=== PATIENT | male | born 1935 | race Two or more races ===

== ENCOUNTER 2016-11-30 13:37 | Emergency (ER) | payer MEDICARE, OTHER ==
[2016-11-30 14:08] VITALS: BP 158/86
--- NOTE | 2016-11-30 14:28 | UC ---
Skin Complaint HPI - HPI Summary HPI Summary: 81 YEAR OLD MALE PRESENTS WITH LEFT SIDED TRUNK RASH. - History of Current Complaint Chief Complaint: UCRash Time Seen by Provider: 11/30/16 14:28 Stated Complaint: RASH Hx Obtained From: Patient Onset/Duration: Sudden Onset Skin Exposure Onset/Duration: Hours Ago Onset Severity: Moderate Current Severity: Moderate Pain Scale Used: 0-10 Numeric - 5 - Allergy/Home Medications Allergies/Adverse Reactions: Allergies Allergy/AdvReac Type Severity Reaction Status Date / Time LACTOSE INTOLERANT Allergy Mild GI UPSET, Uncoded 04/24/14 10:07 GASSY Review of Systems Constitutional: Negative Skin: Rash Eyes: Negative ENT: Negative Respiratory: Negative Cardiovascular: Negative Gastrointestinal: Negative Genitourinary: Negative Motor: Negative Neurovascular: Negative Musculoskeletal: Negative Neurological: Negative Psychological: Negative All Other Systems Reviewed And Are Negative: Yes PMH/Surg Hx/FS Hx/Imm Hx Other History Of: Negative For: Anticoagulant Therapy - Surgical History Surgical History: Yes Surgery Procedure, Year, and Place: 1994 BILATERAL CARPAL TUNNEL RELEASE, [place]. 12/27/2012 WHIPPLE PROCEDURE, [facility]. COLONOSCOPY - 10-12 YEARS AGO. PORT IMPLANT 03/08 - Social History Alcohol Use: Occasionally Alcohol Amount: 3-4 oz wine Substance Use Type: None Smoking Status (MU): Former Smoker Type: Cigarettes - Immunization History Most Recent Influenza Vaccination: fall 2013 Most Recent Tetanus Shot: utd per pt Most Recent Pneumonia Vaccination: utd per pt Physical Exam Triage Information Reviewed: Yes Vital Signs: Initial Vital Signs Temp 38.1 C 11/30/16 14:04 Pulse 82 11/30/16 14:04 Resp 18 11/30/16 14:04 BP 158/86 11/30/16 14:04 Pulse Ox 95 11/30/16 14:04 Eye Exam: Normal ENT Exam: Normal Dental Exam: Normal Neck exam: Normal Neck: Positive: 1 Respiratory Exam: Normal Cardiovascular Exam: Normal Abdominal Exam: Normal Musculoskeletal Exam: Normal Neurological Exam: Normal Psychological Exam: Normal Skin: Positive: rashes - RASH LEFT SIDE OF TRUNK Course/Dx - Differential Diagnoses - Skin Complaint Differential Diagnoses: Varicella Zoster - Diagnoses Provider Diagnoses: SHINGLES Discharge - Discharge Plan Condition: Stable Disposition: HOME Prescriptions: Acetaminop/Codeine 30 MG TAB* [Tylenol/Codeine 30 MG TAB*] 1 tab PO Q8H PRN #9 tab MDD 3 PRN Reason: Pain Acyclovir* [Zovirax 400 MG TAB*] 800 mg PO 5ID #35 tab Capsaicin 0.025% CREAM* [Zostrix 0.025% CREAM*] 1 applic TOPICAL BID #1 tube predniSONE TAB* [Deltasone TAB*] 40 mg PO DAILY #10 tab Patient Education Materials: Shingles (ED) Referrals: June Anglin MD [Primary Care Provider] -
== END 2016-11-30 15:07 | disposition home or self-care (01) ==
LOC: UCEAST 13:37
DX: B02.9 Zoster without complications (principal); E73.9 Lactose intolerance, unspecified; Z87.891 Personal history of nicotine dependence
CPT/HCPCS: 99212; G0463

== ENCOUNTER 2017-08-11 20:57 | Emergency (ER) | payer MEDICARE, OTHER ==
[2017-08-11 21:12] VITALS: BP 186/87
[2017-08-11] MEDS ORDERED: guaiFENesin/CODIEN 100MG-10MG* 5 ML UDC PO ONE (21:24)
[2017-08-11] MEDS ORDERED: Levofloxacin TAB* 250 MG PO ONE (21:24)
[2017-08-11] MEDS ORDERED: Acetaminophen TAB* 325 MG PO ONE (21:40)
--- NOTE | 2017-08-11 21:41 | UC ---
Choco Escobar Stephanie, scribed for Martín Busby MD on 08/11/17 at 2128 . Respiratory Complaint HPI - HPI Summary HPI Summary: The pt is an 82 y/o M presenting to with c/o cough that began 1 week ago. Symptoms include weakness, body aches and fever. The pt received a CXR yesterday which was reported as no acute findings. - History of Current Complaint Chief Complaint: UCRespiratory Stated Complaint: COUGH,NECK PAIN Time Seen by Provider: 08/11/17 21:08 Hx Obtained From: Patient Onset/Duration: Gradual Onset, Lasting Weeks - 1, Still Present Timing: Constant Severity Currently: Moderate Pain Intensity: 8 Pain Scale Used: 0-10 Numeric Character: Cough: Nonproductive Aggravating Factors: Nothing Alleviating Factors: Nothing - Allergies/Home Medications Allergies/Adverse Reactions: Allergies Allergy/AdvReac Type Severity Reaction Status Date / Time LACTOSE INTOLERANT Allergy Mild GI UPSET, Uncoded 08/11/17 21:12 GASSY Home Medications: Home Medications Acetaminophen 325 mg PO Q4H PRN 08/11/17 [History Confirmed 08/11/17] PMH/Surg Hx/FS Hx/Imm Hx Cardiovascular History: Hypertension Other History Of: Negative For: Anticoagulant Therapy - Surgical History Surgical History: Yes Surgery Procedure, Year, and Place: 1994 BILATERAL CARPAL TUNNEL RELEASE, [place]. 12/27/2012 WHIPPLE PROCEDURE, [facility]. COLONOSCOPY - 10-12 YEARS AGO. PORT IMPLANT 03/08 - Family History Known Family History: Negative: Renal Disease - Social History Occupation: Retired Lives: With Family Alcohol Use: Occasionally Alcohol Amount: 3-4 oz wine Substance Use Type: None Smoking Status (MU): Former Smoker Type: Cigarettes When Did the Patient Quit Smoking/Using Tobacco: 30 yrs - Immunization History Most Recent Influenza Vaccination: fall 2013 Most Recent Tetanus Shot: utd per pt Most Recent Pneumonia Vaccination: utd per pt Review of Systems Constitutional: Fever, Other - body aches Skin: Negative Eyes: Negative ENT: Negative Respiratory: Cough Cardiovascular: Negative Gastrointestinal: Negative Genitourinary: Negative Motor: Weakness Neurovascular: Negative Musculoskeletal: Other: - body aches Neurological: Negative Psychological: Negative All Other Systems Reviewed And Are Negative: Yes Physical Exam - Summary Physical Exam Summary: VITAL SIGNS: Reviewed. GENERAL: Patient is a well-developed and nourished MALE who is lying comfortable in the stretcher. Patient is not in any acute respiratory distress. HEAD AND FACE: Normocephalic EYES: PERRLA, EOMI x 2. EARS: Hearing grossly intact. MOUTH: Oropharynx within normal limits. NECK: Supple, trachea is midline, no adenopathy, no JVD, no carotid bruit. CHEST: Symmetric, no tenderness at palpation LUNGS: R lower lobe crackles. CVS: Regular rate and rhythm, S1 and S2 present, no murmurs or gallops appreciated. ABDOMEN: Soft, non-tender. Bowel sounds are normal. No abdominal abnormal pulsations. EXTREMITIES: Full ROM in all major joints, no edema, no cyanosis or clubbing. NEURO: Alert and oriented x 3. No acute neurological deficits. Speech is normal and follows commands. SKIN: Dry and warm Triage Information Reviewed: Yes Vital Signs: Initial Vital Signs Temp 101 F 08/11/17 21:07 Pulse 87 08/11/17 21:07 Resp 16 08/11/17 21:07 BP 186/87 08/11/17 21:07 Pulse Ox 93 08/11/17 21:07 Vital Signs Reviewed: Yes Diagnostic Evaluation - Laboratory O2 Sat by Pulse Oximetry: 93 Respiratory Course/Dx - Course Course Of Treatment: 82-year-old male presents to the urgent care with a chief complaint of having coughing, body aches, fever. She reports that she had a chest x-ray yesterday and it was read as negative for any pathology. However today pain chest x-ray and negative for the patient has a right lower lobe pneumonia. In the physical exam the patient also has a right lower lobe crackles. The patient has fever today and also he has increased ear pain therefore I believe that the patient has pneumonia. He was given Levaquin and Robitussin for the cough. Patient will follow-up with primary care physician in 3 days. He was instructed to return to the emergency department if she develops worsening symptoms. He understands and agrees. - Differential Dx/Diagnosis Provider Diagnoses: Right lower lobe pneumonia Discharge - Sign-Out/Discharge Documenting (check all that apply): Discharge/Admit/Transfer - Discharge Plan Condition: Stable Disposition: HOME Prescriptions: guaiFENesin/CODIEN 100MG-10MG* [Robitussin AC 100Mg-10Mg*] 10 ml PO Q6H PRN # 200 ml MDD 40 ml PRN Reason: Cough Levofloxacin TAB* [Levaquin TAB*] 750 mg PO DAILY #9 tab Patient Education Materials: Pneumonia (ED) Referrals: June Anglin MD [Primary Care Provider] - - Billing Disposition and Condition Condition: STABLE Disposition: Home The documentation as recorded by the Choco murray Stephanie accurately reflects the service I personally performed and the decisions made by Kehinde kolb Walter, MD.
== END 2017-08-11 21:40 | disposition home or self-care (01) ==
LOC: UCEAST 20:57
DX: J18.9 Pneumonia, unspecified organism (principal); I10 Essential (primary) hypertension; Z87.891 Personal history of nicotine dependence
CPT/HCPCS: 99212; A9270-GY; G0463

== ENCOUNTER 2017-09-19 17:05 | Emergency (ER) | payer MEDICARE, OTHER ==
[2017-09-19 17:20] VITALS: BP 139/85
[2017-09-19] MEDS ORDERED: Cephalexin CAP* 500 MG PO ONE ×2 (17:54)
--- NOTE | 2017-09-19 18:30 | UC ---
Skin Complaint HPI - HPI Summary HPI Summary: 10 DAYS AGO WHILE WALKING THROUGH A DOOR CAUGHT HIS LEFT ELBOW ON THE DOOR LATCH. SUSTAINED A SKIN TEAR. PATIENT HAS BEEN KEEPING IT CLEAN AND COVERED WITH BACITRACIN ZINC OINTMENT. COMES IN TODAY BECAUSE THE CENTER DOES NOT SEEM TO BE HEALING WELL. HAS YELLOWISH NECROTIC TISSUE. NO FEVERS. NO DRAINAGE. THINKS HIS TETANUS WAS BOOSTED ABOUT 1 MONTH AGO WITH HIS PCP. - History of Current Complaint Chief Complaint: UCSkin Time Seen by Provider: 09/19/17 17:12 Stated Complaint: SKIN COMPLAINT ON ARM Hx Obtained From: Patient, Family/Sprayer Operator - Onset/Duration: Sudden Onset, Lasting Days, Still Present Timing: Constant Onset Severity: Moderate Current Severity: Moderate Pain Intensity: 0 Pain Scale Used: 0-10 Numeric Aggravating Factor(s): Nothing Alleviating Factor(s): Nothing Associated Signs & Symptoms: Positive: Tenderness - MINIMAL. Negative: Nausea, Fever, Chills, Throat Tightening, Rash, Drainage - Allergy/Home Medications Allergies/Adverse Reactions: Allergies Allergy/AdvReac Type Severity Reaction Status Date / Time LACTOSE INTOLERANT Allergy Mild GI UPSET, Uncoded 09/19/17 17:20 GASSY Home Medications: Home Medications Capsaicin 0.025% CREAM* [Zostrix 0.025% CREAM*] 1 applic TOPICAL BID PRN [History Confirmed 09/19/17] Lisinopril TAB* [Prinivil TAB 5 MG*] 5 mg PO DAILY 09/19/17 [History Confirmed 09/19/17] amLODIPine TAB* [Norvasc 5 mg TAB*] 5 mg PO DAILY 09/19/17 [History Confirmed ] Review of Systems Constitutional: Negative Skin: Bruising, Other - SKIN TEAR Respiratory: Negative Cardiovascular: Negative Gastrointestinal: Negative All Other Systems Reviewed And Are Negative: Yes PMH/Surg Hx/FS Hx/Imm Hx Cardiovascular History: Hypertension Other Cancer History: BILE DUCT Other History Of: Negative For: Anticoagulant Therapy - Surgical History Surgical History: Yes Surgery Procedure, Year, and Place: 1994 BILATERAL CARPAL TUNNEL RELEASE, [place]. 12/27/2012 WHIPPLE PROCEDURE, [facility]. COLONOSCOPY - 10-12 YEARS AGO. PORT IMPLANT 03/08 - Family History Known Family History: Negative: Renal Disease - Social History Alcohol Use: Daily Alcohol Amount: 1 wine/day Substance Use Type: None Smoking Status (MU): Former Smoker Type: Cigarettes When Did the Patient Quit Smoking/Using Tobacco: 30 yrs - Immunization History Most Recent Influenza Vaccination: fall 2013 Most Recent Tetanus Shot: utd per pt Most Recent Pneumonia Vaccination: utd per pt Physical Exam Triage Information Reviewed: Yes Appearance: Well-Appearing, No Pain Distress, Well-Nourished Vital Signs: Initial Vital Signs Temp 98.0 F 09/19/17 17:14 Pulse 77 09/19/17 17:14 Resp 16 09/19/17 17:14 BP 139/85 09/19/17 17:14 Pulse Ox 95 09/19/17 17:14 Vital Signs Reviewed: Yes Eyes: Positive: Conjunctiva Clear ENT: Positive: Hearing grossly normal Neck: Positive: Supple Respiratory: Positive: No respiratory distress, No accessory muscle use Cardiovascular: Positive: Pulses Normal Abdomen Description: Positive: Soft Musculoskeletal: Positive: ROM Intact, No Edema Neurological: Positive: Alert Psychological: Positive: Age Appropriate Behavior Skin: Positive: Other - LEFT ELBOW LATERAL ASPECT: 10CM X 8 CM AREA OF ECCHYMOSIS WITH CENTRALLY LOCATED 3CM X 1 CM OPEN AREA WITH YELLOW NECROTIC TISSUE. NO DRAINAGE. MINIMALLY TENDER. Course/Dx - Course Course Of Treatment: NECROTIC TISSUE DEBRIDED FROM THE WOUND. ANTIBIOTIC OINTMENT AND NONSTICK BANDAGE APPLIED. KEFLEX TO HELP PREVENT INFECTION SETTING IN. PATIENT THINKS HE HAD A TETANUS BOOSTER ABOUT ONE MONTH AGO. ADVISED TO CALL HIS PCP OFFICE FIRST THING Thursday TO CONFIRM. - Diagnoses Provider Diagnoses: SKIN TEAR - HEALING Discharge - Sign-Out/Discharge Documenting (check all that apply): Patient Departure - Discharge Plan Condition: Stable Disposition: HOME Prescriptions: Cephalexin CAP* [Keflex 500 CAP*] 1,000 mg PO BID #16 cap Patient Education Materials: Skin Tear (ED) Referrals: June Anglin MD [Primary Care Provider] - 1 Week Additional Instructions: GENTLY CLEANSE DAILY WITH SOAP AND WATER. PAT DRY AND RE-BANDAGE. APPLY THIN LAYER ANTIBIOTIC OINTMENT UNDER BANDAGE. CHANGE BANDAGE DAILY AND NEEDED IF IT BECOMES SOILED OR WET. SEEK FOLLOW-UP IF YOU DEVELOP SPREADING REDNESS OF THE SKIN, PURULENT DRAINAGE, FEVER, INCREASED PAIN OR ANY OTHER CONCERNING SYMPTOMS. TAKE ANTIBIOTIC TWICE DAILY FOR 5 DAYS TO PREVENT INFECTION. - Billing Disposition and Condition Condition: STABLE Disposition: Home
== END 2017-09-19 17:58 | disposition home or self-care (01) ==
LOC: UCEAST 17:05
DX: S51.012A Laceration without foreign body of left elbow, initial encounter (principal); W22.09XA Striking against other stationary object, initial encounter; Y93.89 Activity, other specified; Y92.009 Unspecified place in unspecified non-institutional (private) residence as the place of occurrence of the external cause; I10 Essential (primary) hypertension; Z87.891 Personal history of nicotine dependence
CPT/HCPCS: 99212; A9270-GY; G0463

== ENCOUNTER 2018-08-20 07:59 | Emergency (ER) | payer MEDICARE, OTHER ==
[2018-08-20 08:13] VITALS: BP 167/91
--- NOTE | 2018-08-20 08:28 | UC ---
Abdominal Pain Male HPI - HPI Summary HPI Summary: Patient is a delightful 83-year-old gentleman who presents to urgent care with his . Patient is status post a Whipple procedure for biliary tract cancer in 2012. Is currently, patient has had 2 hospital admissions for SBO not requiring surgery. Last one was grater than 1 year ago. Patient states his cancer markers are negligible and he is no longer followed by oncology. Patient states he presents today with 2 days of progressive left lower quadrant pain. deep, ache, bloated without radiation. Patient states he had a small heart bowel movement yesterday morning but nothing since. Patient with nausea but no vomiting. Patient states he is chills but no documented fever. No rash. Patient states he is belching a lot. No chest pain or shortness of breath. Patient has not taken any analgesia. Patient states he's unable to get into his primary so he came here today. No recent colonoscopy. No history of diverticulitis. Patient's medications reviewed this visit. - History of Current Complaint Chief Complaint: UCAbdominalPain Stated Complaint: LOWER ABD PAIN Time Seen by Provider: 08/20/18 08:27 Hx Obtained From: Patient, Family/Bundler Onset/Duration: Gradual Onset Severity Initially: Mild Severity Currently: Moderate Pain Intensity: 4 Pain Scale Used: 0-10 Numeric Location: Discrete At: LLQ - Allergies/Home Medications Allergies/Adverse Reactions: Allergies Allergy/AdvReac Type Severity Reaction Status Date / Time LACTOSE INTOLERANT Allergy Mild GI UPSET, Uncoded 08/20/18 08:14 GASSY Home Medications: Home Medications Ibuprofen TAB* [Advil TAB*] 200 mg PO Q6H PRN 08/20/18 [History Confirmed ] PMH/Surg Hx/FS Hx/Imm Hx Previously Healthy: Yes Endocrine History: Dyslipidemia Cardiovascular History: Hypertension Cancer History: Other - biliary tract cancern Other History Of: Negative For: Anticoagulant Therapy - Surgical History Surgical History: Yes Surgery Procedure, Year, and Place: 1994 BILATERAL CARPAL TUNNEL RELEASE, [place]. 12/27/2012 WHIPPLE PROCEDURE, [facility]. COLONOSCOPY - 10-12 YEARS AGO. PORT IMPLANT 03/08 - Family History Known Family History: Positive: Non-Contributory Negative: Renal Disease - Social History Alcohol Use: Daily Alcohol Amount: 1 wine/day Substance Use Type: None Smoking Status (MU): Former Smoker Type: Cigarettes When Did the Patient Quit Smoking/Using Tobacco: 30 yrs - Immunization History Most Recent Influenza Vaccination: fall 2013 Most Recent Tetanus Shot: utd per pt Most Recent Pneumonia Vaccination: utd per pt Review of Systems All Other Systems Reviewed And Are Negative: Yes Constitutional: Positive: Chills, Fatigue Skin: Positive: Negative Eyes: Positive: Negative ENT: Positive: Negative Respiratory: Positive: Negative Cardiovascular: Positive: Negative Gastrointestinal: Positive: Abdominal Pain, Nausea Genitourinary: Positive: Other - slow stream Motor: Positive: Negative Neurovascular: Positive: Negative Physical Exam - Summary Physical Exam Summary: Vital Signs Reviewed: Yes A+Ox3, mild discomfort with movement Eyes: Conjunctiva Clear, KAIT. EOM intact and full ENT: Hearing grossly normal TM x 2 clear, mmoist, uvula midline, no exudate, no erythema Neck: Positive: Supple Respiratory: Positive: No respiratory distress, No accessory muscle use + CTA throughout no w/r Cardiovascular: RRR nl s1, s2 no m/r CBT <2 sec abd soft + BS, no distension, + TTP LLQ with deep palp, no guarding, no rebound Musculoskeletal Exam: FIERRO x 4 without difficulty Strength Intact, ROM Intact Neurological: Positive: Alert, + sensation throughout Psychological: Positive: Normal Response To Family Skin: Positive: no rash, no ecchymosis Triage Information Reviewed: Yes Vital Signs: Initial Vital Signs Temp 98.5 F 08/20/18 08:06 Pulse 70 08/20/18 08:06 Resp 16 08/20/18 08:06 BP 167/91 08/20/18 08:06 Pulse Ox 97 08/20/18 08:06 Abd Pain Male Course/Dx - Course Course Of Treatment: Patient presents to urgent care for evaluation of 2 days progressive left lower quadrant pain. Patient reports mild mild nausea and belching. No vomiting. Patient with a small firm bowel movement yesterday morning but states nothing since. Patient states he has chills but no fevers. Patient's medical history is complex with a history of a Whipple procedure and appendectomy. Patient also states he's had 2 SPS. Patient has never had diverticulitis on exam vital signs are stable except for an elevated blood pressure. Patient with a history of similar took his medications this morning. Patient does have tenderness left lower quadrant but is not rebounding or guarding. Recommend patient to the emergency department for further evaluation. Discussed with patient and at length and they are in agreement with plan. We'll go by private car. I spoke to Alyssa, charge nurse in the ED, where patient coming. - Differential Dx/Clinical Impression Provider Diagnosis: LLQ abdominal pain Discharge - Sign-Out/Discharge Documenting (check all that apply): Patient Departure All imaging exams completed and their final reports reviewed: No Studies - Discharge Plan Condition: Stable Disposition: HOME-RECOMMEND TO ED Patient Education Materials: Abdominal Pain (ED) Referrals: June Anglin MD [Primary Care Provider] - Additional Instructions: The doctor that evaluated you today thinks that you need additional testing that can be completed the emergency department. It is recommended that you go directly to emergency department for further evaluation. This evaluation may include blood work or imaging. This testing will be directed and decided by the provider that evaluate you at the emergency department. If pain becomes worse, you feel lightheaded, you have uncontrolled vomiting, or you have any other concerns while you are being driven to emergency department as recommended to pullover and contact 911. - Billing Disposition and Condition Condition: STABLE Disposition: Home-Recommend to ED
== END 2018-08-20 08:50 | disposition home health service (06) ==
LOC: UCEAST 07:59
DX: R10.32 Left lower quadrant pain (principal); I10 Essential (primary) hypertension; E78.5 Hyperlipidemia, unspecified; R68.83 Chills (without fever); R53.83 Other fatigue; Z87.891 Personal history of nicotine dependence; Z85.09 Personal history of malignant neoplasm of other digestive organs
CPT/HCPCS: 99212; G0463

== ENCOUNTER 2018-08-20 09:07 | Emergency (ER) | payer MEDICARE, OTHER ==
[2018-08-20] MEDS ORDERED: NS 0.9% 1000 ML** 1,000 ML IV ONE ×2 (09:23→10:17)
[2018-08-20] MEDS ORDERED: Morphine INJ* 2 MG/ML 1 ML SYRINGE (TWO MG - NEW SYRINGE VERSION) IV ONE (09:24)
[2018-08-20] MEDS ORDERED: Ondansetron INJ* 2 MG/ML VIAL IV ONE (09:24)
--- NOTE | 2018-08-20 09:31 | ED ---
GI/ HPI - HPI Summary HPI Summary: 83-year-old male presents with lower quadrant pain for the past 3 days. He states he had a small bowel movement yesterday that had difficulty with. He states he has passed some gas since. He states that he has been feeling nauseous but no vomiting. He does have a history of bowel obstruction. 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 He states he is currently in remission for the bile duct cancer. He denies any fevers. No urinary symptoms. No chest pain or shortness of breath. Has history of high blood pressure. - History of Current Complaint Chief Complaint: EDAbdPain Time Seen by Provider: 08/20/18 09:14 Stated Complaint: ABD PAIN PER PT Pain Intensity: 5 - Allergy/Home Medications Allergies/Adverse Reactions: Allergies Allergy/AdvReac Type Severity Reaction Status Date / Time lactose Allergy GI Upset Verified 08/20/18 09:12 Home Medications: Home Medications Loratadine [Claritin] 10 mg PO DAILY PRN 08/20/18 [History Confirmed 08/20/18] PMH/Surg Hx/FS Hx/Imm Hx Endocrine/Hematology History: Reports: Hx Diabetes Denies: Hx Anticoagulant Therapy, Hx Blood Disorders, Hx Blood Transfusions, Hx Bone Marrow Disease, Hx Systemic Lupus Erythematosus, Hx Sickle Cell Disease , Hx Thyroid Disease, Hx Anemia, Hx Unexplained Bleeding, Other Endocrine/ Hematological Disorders Cardiovascular History: Reports: Hx Hypercholesterolemia, Hx Hypertension, Other Cardiovascular Problems/Disorders - HX OF CHOLESTEROL ELEVATION SLIGHTLY, NO MEDS Denies: Hx Aneurysm, Hx Angioplasty, Hx Auto Implanted Cardiovert Defib, Hx Cardiac Arrest, Hx Cardiomegaly, Hx Congenital Heart Disease, Hx Congestive Heart Failure, Hx Coronary Artery Disease, Hx Deep Vein Thrombosis, Hx Embolism , Hx Hypotension, Hx Pacemaker/ICD, Hx Peripheral Vascular Disease, Hx Rheumatic Fever, Hx Syncope, Hx Valvular Heart Disease Respiratory History: Denies: Hx Asthma, Hx Chronic Bronchitis, Hx Chronic Obstructive Pulmonary Disease (COPD), Hx Cystic Fibrosis, Hx Lung Cancer, Hx Pleural Effusion, Hx Pneumonia, Hx Pulmonary Edema, Hx Pulmonary Embolism, Hx Seasonal Allergies, Hx Sleep Apnea, Other Respiratory Problems/Disorders GI History: Reports: Hx Gall Bladder Disease - bile duct CA, Hx Gastroesophageal Reflux Disease, Hx Obstructive Bowel - current SBO, Other GI Disorders - SMALL BOWEL OBSTRUCTION 02/05/13 Denies: Hx Cirrhosis, Hx Crohn's Disease, Hx Diverticulosis, Hx Gastrointestinal Bleed, Hx Hiatal Hernia, Hx Irritable Bowel, Hx Jaundice, Hx Ileostomy, Hx Pyloric Stenosis, Hx Ulcer History: Denies: Hx Acute Renal Failure, Hx Benign Prostatic Hyperplasia, Hx Chronic Renal Failure, Hx Dialysis, Hx Kidney Infection, Hx Kidney Stones, Hx Renal Disease, Other Problems/Disorders Musculoskeletal History: Reports: Hx Arthritis, Hx Back Problems - low back pain Denies: Hx Bursitis, Hx Congenital Bone Abnormalities, Hx Fibromyalgia, Hx Gout, Hx Orthopedic Injury, Hx Osteoporosis, Hx Scoliosis, Hx Tendonitis, Other Musculoskeletal History Sensory History: Reports: Hx Contacts or Glasses, Hx Hearing Problem - [place] Denies: Hx Cataracts, Hx Eye Injury, Hx Eye Prosthesis, Hx Glaucoma, Hx Legally Blind, Hx Macular Degeneration, Hx Vision Problem, Hx Deafness, Hx Hearing Aid, Other Sensory Impairments Opthamlomology History: Reports: Hx Contacts or Glasses Denies: Hx Cataracts, Hx Eye Injury, Hx Eye Prosthesis, Hx Glaucoma, Hx Legally Blind, Hx Macular Degeneration, Hx Vision Problem, Other Sensory Impairments Neurological History: Denies: Hx Dementia, Hx Developmental Delay, Hx Headaches, Hx Migraine, Hx Nerve Disease, Hx Seizures, Hx Spinal Cord Injury, Hx Transient Ischemic Attacks (TIA), Other Neuro Impairments/Disorders Psychiatric History: Denies: Hx Anxiety, Hx Attention Deficit Hyperactivity Disorder, Hx Eating Disorder, Hx Depression, Hx Panic Disorder, Hx Post Traumatic Stress Disorder, Hx Inpatient Treatment, Hx Community Mental Health Tx, Hx Schizophrenia, Hx Bipolar Disorder, Hx Suicide Attempt, Hx of Violent Episodes Against Others, Hx Substance Abuse, Other Psychiatric Issues/Disorders - Cancer History Cancer Type, Location and Year: "bile duct" cancer per pt. Hx Chemotherapy: Yes - jul 2013 Hx Radiation Therapy: No Hx Palliative Cancer Treatment: No - Surgical History Surgery Procedure, Year, and Place: 1994 BILATERAL CARPAL TUNNEL RELEASE, [place]. 12/27/2012 WHIPPLE PROCEDURE, [facility]. COLONOSCOPY - 10-12 YEARS AGO. PORT IMPLANT 03/08 Hx Anesthesia Reactions: No - Immunization History Date of Tetanus Vaccine: unknown Infectious Disease History: No Infectious Disease History: Reports: Hx Shingles Denies: Hx Clostridium Difficile, Hx Hepatitis, Hx Human Immunodeficiency Virus (HIV), Hx Tuberculosis, Hx Known/Suspected VRE, Hx Known/Suspected VRSA, History Other Infectious Disease, Traveled Outside the [place] in Last 30 Days - Family History Known Family History: Positive: Non-Contributory Negative: Renal Disease - Social History Alcohol Use: Daily Alcohol Amount: 1 wine/day Substance Use Type: Reports: None Hx Tobacco Use: Yes - QUIT 30 YEARS AGO Smoking Status (MU): Former Smoker Type: Cigarettes Review of Systems Negative: Fever Negative: Chest Pain Negative: Shortness Of Breath Positive: Abdominal Pain, Nausea. Negative: Vomiting, Diarrhea All Other Systems Reviewed And Are Negative: Yes Physical Exam Triage Information Reviewed: Yes Vital Signs On Initial Exam: Initial Vitals Temp Pulse Resp BP Pulse Ox 97.7 F 72 18 164/91 96 08/20/18 09:09 08/20/18 09:09 08/20/18 09:09 08/20/18 09:09 08/20/18 09:09 Vital Signs Reviewed: Yes Appearance: Positive: Well-Appearing Skin: Positive: Warm, Dry Head/Face: Positive: Normal Head/Face Inspection Eyes: Positive: Normal, Conjunctiva Clear ENT: Positive: Pharynx normal Respiratory/Lung Sounds: Positive: Clear to Auscultation, Breath Sounds Present Cardiovascular: Positive: Normal, RRR Abdomen Description: Positive: Soft, Other: - tenderness LLQ, no rebound Bowel Sounds: Positive: Present Musculoskeletal: Positive: Normal Neurological: Positive: Normal Psychiatric: Positive: Normal Diagnostics - Vital Signs Vital Signs Temp Pulse Resp BP Pulse Ox 08/20/18 09:09 97.7 F 72 18 164/91 96 - Laboratory Result Diagrams: 08/20/18 09:38 08/20/18 09:38 Lab Statement: Any lab studies that have been ordered have been reviewed, and results considered in the medical decision making process. - CT abd CT Interpretation Completed By: Radiologist Summary of CT Findings: IMPRESSION: 1. NO EVIDENCE FOR COLITIS OR DIVERTICULITIS. THERE IS A LARGE AMOUNT OF RETAINED STOOL IN. THE DESCENDING AND SIGMOID COLON. 2. STATUS POST WHIPPLE PROCEDURE. NEW PANCREATIC DUCTAL DISTENTION. NO MASS IS SEEN. ALTHOUGH THERE IS A CALCIFICATION IN THE REGION OF THE PROXIMAL PANCREATIC DUCT WHICH MAY. BE THE CAUSE OF THE DUCTAL DISTENTION. CONSIDER A MRCP AND MRI OF THE PANCREAS WITHOUT AND. WITH CONTRAST. 3. RIGHT INGUINAL HERNIA CONTAINING NONDISTENDED SMALL BOWEL. THE HERNIA SIZE HAS. INCREASED FROM THE PRIOR STUDY. 4. 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 PRIOR STUDY. 5. PNEUMOBILIA, UNCHANGED. 6. 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 Re-Evaluation - Re-Evaluation First Eval Re-Evaluation Time: 12:57 Comment: attempted to have a bowel movement but unable to. does not want to do suppository here. GIGU Course/Dx - Course Course Of Treatment: 83-year-old male presents with lower quadrant pain for the past 3 days. He states he had a small bowel movement yesterday that had difficulty with. He states he has passed some gas since. He states that he has been feeling nauseous but no vomiting. He does have a history of bowel obstruction. 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 He states he is currently in remission for the bile duct cancer. He denies any fevers. No urinary symptoms. No chest pain or shortness of breath. Has history of high blood pressure. On exam tenderness left lower quadrant. No rebound. wbc 9. sodium 131. lipase is 173. crp elevated. urine no infection. CT shows stool and new duct dilation of pancreatitis duct. spoke with dr diaz who says to consult GI. discused case with dr maloeny who says to have follow up with primary to get MRI and they can consult with GI ([facility]) if needed. will also have follow up about worsening abd aneusrym for follow up. discussed options with patient for conspitation and wants to go home and take mag citrate. will have do miralax at home. patient understand and agrees with plan. - Diagnoses Differential Diagnoses - Male: Bowel Obstruction, Diverticulosis, Other - constipation Provider Diagnoses: Abdominal pain, Constipation Discharge - Sign-Out/Discharge Documenting (check all that apply): Patient Departure Patient Received Moderate/Deep Sedation with Procedure: No - Discharge Plan Condition: Good Disposition: HOME Prescriptions: Polyethylene Glycol 3350* [Miralax*] 17 gm PO DAILY #20 packet Patient Education Materials: Constipation (ED) Referrals: June Anglin MD [Primary Care Provider] - Additional Instructions: take magnesium citrate take miralax packet in 8 ounce of liquid daily for next 7 days increase fiber intake Take Tylenol every 6 hours as needed for pain Follow up with primary for follow up on pancreatic duct as may need MRI outpatient in future and possible GI consult Return to ED if develop any new or worsening symptoms - Billing Disposition and Condition Condition: GOOD Disposition: Home
[2018-08-20 09:49] LABS: ABS Monocytes 0.8 10^3/ul (0-0.8); Eosinophil % 0.6 %; Hematocrit 45 % (42-52); Lymphocyte % 11.3 %; Mean Corpuscular HGB Conc 33 g/dL (31-36); Mean Corpuscular Hemoglobin 26 pg (27-31); Mean Corpuscular Volume 79 fL (80-94); Mean Platelet Volume 9.5 fL (7.4-10.4); Nucleated Red Blood Cells % 0.1; Platelet Count 128 10^3/uL (150-450); Red Blood Count 5.76 10^6 /uL (4.18-5.48); Red Cell Distribution Width 16 % (10-15)
[2018-08-20 10:06] LABS: Albumin 3.8 g/dL (3.2-5.2); Albumin/Globulin Ratio 1.1 (1-3); BUN/Creatinine Ratio 16.1 (8-20); C Reactive Protein 60.19 mg/L (<8.01); Calcium 8.9 mg/dL (8.6-10.3); EGFR African American 149.2 (>60); EGFR Non-African American 123.3 (>60); Globulin 3.4 g/dL (2-4); Potassium 3.5 mmol/L (3.5-5.0); Total Bilirubin 1.8 mg/dL (0.2-1.0); Total Protein 7.2 g/dL (6.4-8.9)
[2018-08-20] MEDS ORDERED: Iodixanol* (CONTRAST) 320 MG/ML 100 ML SDV IV ONE (10:10)
[2018-08-20 11:04] LABS: Urine Appearance Clear; Urine Bilirubin Negative (Negative); Urine Blood Negative (Negative); Urine Color Yellow; Urine Glucose Negative (Negative); Urine Ketones Trace (Negative); Urine Nitrite Negative (Negative); Urine Protein Negative (Negative); Urine Specific Gravity 1.006 (1.010-1.030); Urine Urobilinogen Negative (Negative)
[2018-08-20] MEDS ORDERED: Magnesium CITRATE* 300 ML BTL PO ONE (12:58)
[2018-08-20 13:33] VITALS: BP 172/95
== END 2018-08-20 13:34 | disposition home or self-care (01) ==
LOC: ED 09:07
DX: K59.00 Constipation, unspecified (principal); E11.9 Type 2 diabetes mellitus without complications; I10 Essential (primary) hypertension; Z87.891 Personal history of nicotine dependence
CPT/HCPCS: 36415; 74177; 80053; 81003; 82150; 83605; 83690; 85025; 86140; 96361; 96374; 96375; 99283; A9270-GY; J2270; J2405; Q9967

== ENCOUNTER 2019-04-15 11:34 | Day surgery (SDC) | payer MEDICARE, OTHER ==
[~2019-04-15 11:34] MED LIST: Buffered Lidocaine 1% SYRIN* 1 ML/SYRINGE INTRADERM ONE; Dexamethasone TAB* 4 MG PO ONE; DiMENhydriNATE IV* 50 MG/ML VIAL IV PUSH PRN; Famotidine IV* 10 MG/ML 2 ML (20 mg) IV ONE; HYDROmorphone INJ1* 1 MG/ML SYRINGE IV PRN; Lactated Ringers 1000 ML Bag* 1,000 ML IV SCH; Naloxone* 0.4 MG/ML 1 ML VIAL IV PRN; Ondansetron ODT TAB* 4 MG PO ONE; PROCHLORPERAZINE INJ 5 MG/ML 2 ML VIAL IV PRN; fentaNYL* 50 MCG/ML 2 ML VIAL (100 MCG VIAL) IV PRN; oxyCODONE TAB* 5 MG TAB PO PRN
[2019-04-15] MEDS ORDERED: ceFAZolin 2 GM in NS PREMIX(*) 2 GM/100 ML BAG IVPB ONE (11:55)
[2019-04-15] MEDS ORDERED: Famotidine IV* 10 MG/ML 2 ML (20 mg) ONE (11:55)
[2019-04-15] MEDS ORDERED: Dexamethasone TAB* 4 MG ONE (11:55)
[2019-04-15] MEDS ORDERED: Ondansetron ODT TAB* 4 MG ONE (11:55)
[2019-04-15] MEDS ORDERED: fentaNYL* 50 MCG/ML 2 ML VIAL (100 MCG VIAL) ONE (12:12)
[2019-04-15] MEDS ORDERED: Midazolam* 1 MG/ML 2 ML VIAL (2 MG) ONE (12:12)
[2019-04-15] MEDS ORDERED: KETAMINE HCL* 50 MG/ML 10 ML VIAL ONE (12:12)
[2019-04-15] MEDS ORDERED: Propofol* 10 MG/ML 20 ML BTL ONE (12:14)
[2019-04-15] MEDS ORDERED: Bupivacaine 0.5% W/EPI SDV* 10 ML VIAL INJ ONE (12:34)
[2019-04-15] MEDS ORDERED: Lidocaine 1% INJ* 10 MG/ML 30 ML SDV ONE (12:35)
[2019-04-15] MEDS ORDERED: Ketorolac INJ* 30 MG/ML 1 ML VIAL ONE (13:20)
[2019-04-15] MEDS ORDERED: Acetaminophen IV 1GM/100ML * 100 ML ONE (13:21)
--- NOTE | 2019-04-15 14:07 | BRIEFOPN ---
Brief Operative/Procedure Note - Operation Details Pre-Op Diagnosis: Right inguinal hernia Post-Op Diagnosis: same; direct Procedures: open repair right inguinal hernia w/ mesh Surgeon(s)/Proceduralists: Edyta. Assist: DARCI Berrios Anesthesia: local MAC. Fluids: 600 ml RL Estimated Blood Loss: none Findings: as above Specimen(s)/Culture(s) Description: none Complications: none
[2019-04-15 15:40] VITALS: BP 166/91
--- NOTE | 2019-04-16 02:24 | OP ---
DATE OF OPERATION: 04/15/19 - [facility] DATE OF : 31 SURGEON: Carter Lan MD SOCIAL WORKER CLINICAL: DARCI Torres ANESTHESIOLOGIST: Dr. Carlson. ANESTHESIA: Local with monitored anesthesia care. PRE-OP DIAGNOSIS: Right inguinal hernia. POST-OP DIAGNOSIS: Right direct inguinal hernia. OPERATIVE PROCEDURE: Open repair with mesh of a right direct inguinal hernia. ESTIMATED BLOOD LOSS: Minimal. IV FLUIDS: 600 cc of crystalloid. SPECIMENS: None. WOUND CLASSIFICATION: 1. DRAINS: None. COMPLICATIONS: None. FINDINGS: Right direct inguinal hernia. DESCRIPTION OF PROCEDURE: Written informed consent was obtained, preoperative antibiotics were administered, and the right groin was marked with indelible ink. The patient was taken to the operating room and placed in the supine position. Sequential compression devices and warming blanket were applied. Anesthesia was administered and the right lower abdomen and groin were prepped and draped in usual sterile fashion. Time-out verification was completed. Marcaine 0.25% mixed with 1% lidocaine was then infiltrated in the right groin and an oblique incision several finger-breadths above the inguinal crease was made and carried down to Kevon's fascia. The external oblique aponeurosis and the external ring were identified, and the aponeurosis was opened in the direction of its fibers to expose the under-lying spermatic cord and inguinal floor. The spermatic cord was encircled with 1 quarter-inch Cydney drain at the pubic tubercle. It was apparent that there was a weakened direct space with a hernia sac extending through a defect in the transversalis fascia, which was from the cord structures and this was easily reduced into the direct space. I actually imbricated the defect using a pursestring 3-0 Vicryl suture to invert the sac back into the retroperitoneum. It should also be noted that the direct space was quite weak. Careful evaluation of the cord structures revealed no evidence of indirect inguinal hernia and the inguinal ring was of normal size. Once this was complete, a ProGrip right-sided Covidien mesh was then placed and sutured to the pubic tubercle with a 0 Vicryl suture. It was then placed to cover both the direct and indirect space when recreating the internal ring to appropriate caliber. The mesh was sutured to the conjoint tendon superiorly with several interrupted 0 Vicryl sutures, the musculature laterally with single 0 Vicryl suture. Due to the size of the direct space hernia and its overall weakness, I sutured the inferior part of the mesh to the shelving edge of the inguinal ligament medially to laterally well past the internal ring. The mesh set nicely without wrinkling. Hemostasis was assured. Additional Marcaine was infiltrated. The external oblique aponeurosis was closed with a running 3-0 Vicryl suture. Kevon's fascia was closed with a running 3-0 Vicryl suture. The skin was approximated with subcuticular 4-0 Vicryl suture. Steri-Strips were applied. Sterile dressing was placed. The patient tolerated the procedure well and was taken to the recovery room in stable condition. [id number]/CPS #: [id number] PETER
== END 2019-04-15 15:43 | disposition home or self-care (01) ==
LOC: OR 11:34
PROVIDERS: ATTEND Surgery
DX: K40.90 Unilateral inguinal hernia, without obstruction or gangrene, not specified as recurrent (principal); Z87.891 Personal history of nicotine dependence; I10 Essential (primary) hypertension; Z85.09 Personal history of malignant neoplasm of other digestive organs; K86.89 Other specified diseases of pancreas; K21.9 Gastro-esophageal reflux disease without esophagitis
CPT/HCPCS: A9270-GY; C1781; J0690; J1885; J2250; J2704; J3010; J8540

== ENCOUNTER 2023-04-09 09:20 | Inpatient (IN) ==
[2023-04-09 11:29] LABS: Hematocrit 36.9 % (38-53); Hemoglobin 11.7 g/dL (13.2-16.3); Mean Corpuscular Hemoglobin 21.9 pg (27-33); Mean Corpuscular Hgb Conc 31.7 g/dL (31-36); Mean Platelet Volume 8.7 fL (7.5-11.2); Platelet Count 138 10^3/uL (150-450); Red Blood Count 5.33 10^6/uL (4.06-5.63); Red Cell Distribution Width 19.7 % (12-17)
[2023-04-09 11:32] LABS: Activated Partial Thrombo Time 35.9 seconds (26.0-38.0); INR 1.12 (0.83-1.13)
[2023-04-09 11:48] LABS: Albumin 3.8 g/dL (3.2-5.2); Calcium 8.9 mg/dL (8.6-10.3); Creatinine, Serum 0.76 mg/dL (0.67-1.17); Globulin 3.8 g/dL (2-4); Magnesium 1.9 mg/dL (1.9-2.7); Potassium 4.5 mmol/L (3.5-5.0); Total Bilirubin 0.9 mg/dL (0.2-1.0); Total Protein 7.6 g/dL (6.4-8.9); eGFR CKD-EPI 85.9 (>60)
[2023-04-09 11:53] LABS: ABS Eosinophils 0.2 10^3/uL (0.0-0.5); ABS Lymphocytes 0.9 10^3/uL (1.0-4.8); ABS Monocytes 0.6 10^3/uL (0.0-1.1); ABS Neutrophils 4.3 10^3/uL (1.5-7.6); ABS Nucleated RBC 0.01 10^3/ul; Eosinophil % 2.8 %; Hypochromasia 1+; Lymphocyte % 15.1 %; Mean Corpuscular Volume 69.2 fL (80-97); Microcytosis 3+; Nucleated Red Blood Cells % 0.1 %/100WBC (0.0-0.8)
[2023-04-09 12:23] LABS: TSH Ultra Thyroid Stim Horm 2.11 mcIU/mL (0.34-5.60)
[2023-04-09] MEDS: Iodixanol (CONTRAST) 320 MG/ML 100 ML SDV IV ONE (12:24)
[2023-04-09 12:51] LABS: High Sensitivity Troponin 1 Hr 8 pg/mL (<20)
[2023-04-09 13:24] LABS: HDL Cholesterol 55.2 mg/dL
[2023-04-09 14:00] LABS: Ferritin 26.8 ng/mL (24-336)
[2023-04-09 14:12] LABS: Urine Appearance Clear; Urine Bilirubin Negative (Negative); Urine Blood Negative (Negative); Urine Color Colorless; Urine Glucose Negative (Negative); Urine Ketones Negative (Negative); Urine Nitrite Negative (Negative); Urine Protein Negative (Negative); Urine Specific Gravity 1.017 (1.002-1.030); Urine Urobilinogen Negative (Negative)
[2023-04-09] MEDS: Ferric Gluconate IV 250 MG in NS 0.9% 250 ml 200 ML IVPB ONE (16:46)
[2023-04-09] MEDS: NF:Multivitamins/Mins AREDS2 (NF) CAP PO SCH (21:03)
[2023-04-09] MEDS: Enoxaparin 40 MG/0.4 ML SYR SUBCUT SCH (21:03)
[2023-04-09] MEDS: Senna TAB 8.6 mg TAB PO SCH (21:04)
[2023-04-09] MEDS: Docusate LIQ 100 MG/10 ML UDC PO SCH (21:04)
[2023-04-10 06:46] LABS: Calcium 8.6 mg/dL (8.6-10.3); Creatinine, Serum 0.67 mg/dL (0.67-1.17); Magnesium 1.9 mg/dL (1.9-2.7); Potassium 3.8 mmol/L (3.5-5.0); eGFR CKD-EPI 89.2 (>60)
[2023-04-10 06:54] LABS: ABS Eosinophils 0.1 10^3/uL (0.0-0.5); ABS Lymphocytes 0.9 10^3/uL (1.0-4.8); ABS Monocytes 0.4 10^3/uL (0.0-1.1); ABS Neutrophils 4.8 10^3/uL (1.5-7.6); Eosinophil % 2.1 %; Hematocrit 36.5 % (38-53); Hemoglobin 11.6 g/dL (13.2-16.3); Lymphocyte % 14.8 %; Mean Corpuscular Hemoglobin 21.9 pg (27-33); Mean Corpuscular Hgb Conc 31.9 g/dL (31-36); Mean Corpuscular Volume 68.5 fL (80-97); Mean Platelet Volume 8.8 fL (7.5-11.2); Platelet Count 129 10^3/uL (150-450); Red Blood Count 5.32 10^6/uL (4.06-5.63); Red Cell Distribution Width 19.5 % (12-17); White Blood Count 6.4 10^3/uL (3.6-10.2)
[2023-04-10] MEDS: Ferric Gluconate IV 250 MG in NS 0.9% 250 ml 200 ML IVPB SCH (08:09)
[2023-04-10 14:38] VITALS: BP 154/83
== END 2023-04-10 17:15 | disposition home or self-care (01) | DRG 65 ==
LOC: ED 09:20 → SUATTDRO 13:02 → EDHOLD 13:02 → MEDTELE 14:33
PROVIDERS: ADMIT Hospitalist; ATTEND Internal Medicine